=== PATIENT | female | born 1945 | race Two or more races ===

== ENCOUNTER 2019-11-29 17:22 | Emergency (ER) | payer OTHER ==
[~2019-11-29] VITALS: Ht 154.9 cm; Wt 47.6 kg
[~2019-11-29 17:22] MED LIST: TRANSFER FACTOR; [UNRECOGNIZED DRUG - OTHER]
== END 2019-11-29 22:52 | disposition home or self-care (01) ==
LOC: ER 17:22
DX: R51 Headache (principal)

== ENCOUNTER 2020-06-05 08:12 | Outpatient (CLI) | payer OTHER | END 2020-06-05 08:21 | disposition home or self-care (01) | LOC: MAMO-SONO 08:12 | PROVIDERS: ATTEND Internal Medicine | DX: Z12.31 Encounter for screening mammogram for malignant neoplasm of breast (principal); N60.11 Diffuse cystic mastopathy of right breast; I10 Essential (primary) hypertension; M54.5 Low back pain; Z01.810 Encounter for preprocedural cardiovascular examination; E03.8 Other specified hypothyroidism; E78.89 Other lipoprotein metabolism disorders; E11.51 Type 2 diabetes mellitus with diabetic peripheral angiopathy without gangrene; E55.9 Vitamin D deficiency, unspecified ==

== ENCOUNTER → 2020-06-05 | Outpatient (CLI) | payer OTHER | END | disposition home or self-care (01) | LOC: NUCLEAR 13:04 | PROVIDERS: ATTEND Internal Medicine | DX: M81.0 Age-related osteoporosis without current pathological fracture (principal); M54.5 Low back pain; Z01.810 Encounter for preprocedural cardiovascular examination; E03.8 Other specified hypothyroidism; E78.89 Other lipoprotein metabolism disorders; E11.51 Type 2 diabetes mellitus with diabetic peripheral angiopathy without gangrene; E55.9 Vitamin D deficiency, unspecified; E11.9 Type 2 diabetes mellitus without complications ==

== ENCOUNTER → 2021-05-01 08:51 | Outpatient (CLI) | payer OTHER | END | disposition home or self-care (01) | LOC: NUCLEAR 06-05 12:30 → RAD 08:51 | PROVIDERS: ATTEND Internal Medicine | DX: M19.041 Primary osteoarthritis, right hand (principal); M17.11 Unilateral primary osteoarthritis, right knee ==

== ENCOUNTER 2021-08-06 11:20 | Outpatient (CLI) | payer OTHER | END 2021-08-06 11:28 | disposition home or self-care (01) | LOC: SONOGRAMA 11:20 | PROVIDERS: ATTEND Internal Medicine Nephrology | DX: E04.2 Nontoxic multinodular goiter (principal); E03.8 Other specified hypothyroidism ==

== ENCOUNTER 2021-08-20 00:30 | Emergency (ER) | payer OTHER ==
[~2021-08-20] VITALS: Ht 165.1 cm; Wt 47.6 kg
[2021-08-20] MEDS ORDERED: ZOFRAN4 MG PO (06:05)
[2021-08-20] MEDS ORDERED: PEPCID40 MG PO (06:05)
== END 2021-08-20 06:19 | disposition home or self-care (01) ==
LOC: ER 00:30
DX: K52.9 Noninfective gastroenteritis and colitis, unspecified (principal)

== ENCOUNTER 2021-10-06 08:57 | Outpatient (CLI) | payer OTHER ==
[~2021-10-06 08:57] MED LIST changes: +PEPCID40 MG PO; +ZOFRAN4 MG PO
== END 2021-10-06 14:19 | disposition home or self-care (01) ==
LOC: SONOGRAMA 08:57
PROVIDERS: ATTEND Pathology Anatomic Pathology & Clinical Pathology
DX: D34 Benign neoplasm of thyroid gland (principal); E04.2 Nontoxic multinodular goiter; E04.8 Other specified nontoxic goiter

== ENCOUNTER 2022-05-06 08:54 | Outpatient (CLI) | payer OTHER | END 2022-05-06 09:01 | disposition home or self-care (01) | LOC: MAMO-SONO 08:54 | PROVIDERS: ATTEND Internal Medicine | DX: Z12.31 Encounter for screening mammogram for malignant neoplasm of breast (principal) ==

== ENCOUNTER 2022-07-20 08:31 | Outpatient (CLI) | payer OTHER | END 2022-07-20 08:34 | disposition home or self-care (01) | LOC: SONOGRAMA 08:31 | PROVIDERS: ATTEND Internal Medicine | DX: E04.2 Nontoxic multinodular goiter (principal) ==

== ENCOUNTER 2022-09-02 10:22 | Outpatient (CLI) | payer OTHER | END 2022-09-02 10:23 | disposition home or self-care (01) | LOC: NUCLEAR 10:22 | PROVIDERS: ATTEND Internal Medicine | DX: Z13.820 Encounter for screening for osteoporosis (principal); M15.0 Primary generalized (osteo)arthritis; I10 Essential (primary) hypertension; Z91.018 Allergy to other foods ==

== ENCOUNTER 2023-02-23 06:35 | Emergency (ER) | payer OTHER ==
[~2023-02-23] VITALS: Ht 152.4 cm; Wt 47.6 kg
[2023-02-23] MEDS ORDERED: MUPIROCIN1 G1 TOP (09:31)
[2023-02-23] MEDS ORDERED: CIPRO500 MG PO (09:31)
== END 2023-02-23 09:51 | disposition home or self-care (01) ==
LOC: ER 06:35
DX: L02.212 Cutaneous abscess of back [any part, except buttock and flank] (principal); Z88.0 Allergy status to penicillin; Z88.6 Allergy status to analgesic agent; Z91.018 Allergy to other foods

== ENCOUNTER 2023-10-03 10:50 | Outpatient (CLI) | payer OTHER ==
[~2023-10-03 10:50] MED LIST changes: +CIPRO500 MG PO; +MUPIROCIN1 G1 TOP
== END 2023-10-03 11:02 | disposition home or self-care (01) ==
LOC: MAMO-SONO 10:50
PROVIDERS: ATTEND Internal Medicine
DX: Z12.31 Encounter for screening mammogram for malignant neoplasm of breast (principal)

== ENCOUNTER 2024-06-21 09:48 | Outpatient (CLI) | payer OTHER | END 2024-06-21 09:54 | disposition home or self-care (01) | LOC: RAD 09:48 | PROVIDERS: ATTEND Ophthalmology | DX: Z01.811 Encounter for preprocedural respiratory examination (principal) ==

== ENCOUNTER 2024-06-25 07:41 | Outpatient (CLI) | payer OTHER ==
[2024-06-25 08:33] LABS: HEMATOCRIT 37.8 % (36.0-45.00); HEMOGLOBIN 12.8 g/dL (12.0-15.00); MEAN CELL VOLUME 84.7 fL (80.00-100.00); MEAN CORPUSCULAR HEMOGLOBIN 28.6 pg (27.00-32.0); MEAN CORPUSCULAR HGB CONC 33.8 g/dl (32.0-36.0); PLATELET COUNT 286 K/uL (150-450); RED BLOOD COUNT 4.46 M/uL (4.00-6.00); RED CELL DISTRIBUTION WIDTH 14.3 % (11.5-14.5)
[2024-06-25 08:37] LABS: URINE APPEARANCE Clear; URINE BILIRRUBIN Negative (NEGATIVE); URINE BLOOD Negative; URINE COLOR Yellow; URINE GLUCOSE Negative (NEGATIVE); URINE KETONE Negative (NEGATIVE); URINE LEUKOCYTE Small; URINE NITRATE Negative; URINE PROTEIN Negative (NEGATIVE)
[2024-06-25 08:42] LABS: URINE BACTERIA 59.2 uL (0.0-1933); URINE EPITHELIAL CELLS 4.3 uL (0.0-38.8); URINE RBC 3.9 uL (0.0-20.8)
[2024-06-25 09:05] LABS: INR 1.29; PARTIAL THROMBOPLASTIN TIME 28.8 SECONDS (22.0-34.0); PROTHROMBIN TIME 13.8 SECONDS (9.0-11.5)
[2024-06-25 09:07] LABS: ALBUMIN 3.6 gm/dL (3.4-5.0); BILIRUBIN TOTAL 0.51 mg/dL (0.3-1.2); CREATININE SERUM 0.59 mg/dL (0.55-1.02); GFR 99.1; GLOBULINA 2.6 G/DL (2.4-3.5); POTASSIUM 4.2 mEq/L (3.5-5.1); TOTAL PROTEIN 6.2 gm/dL (6.4-8.2)
== END 2024-06-25 08:03 | disposition home or self-care (01) ==
LOC: LAB 07:41
PROVIDERS: ATTEND Ophthalmology
DX: D68.8 Other specified coagulation defects (principal); H25.013 Cortical age-related cataract, bilateral; I10 Essential (primary) hypertension; E78.9 Disorder of lipoprotein metabolism, unspecified; E55.9 Vitamin D deficiency, unspecified; M15.0 Primary generalized (osteo)arthritis; E11.51 Type 2 diabetes mellitus with diabetic peripheral angiopathy without gangrene; Z13.820 Encounter for screening for osteoporosis